=== PATIENT | male | born 1975 | race Caucasian/White ===

== ENCOUNTER 2018-02-24 11:04 | Emergency (ER) | payer OTHER ==
[2018-02-24 11:15] VITALS: BP 145/86
[2018-02-24] MEDS ORDERED: PROPARACAINE 0.5% OPHTH DROPS 15 ML EACHEYE STA (12:04)
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
== END 2018-02-24 12:14 | disposition home or self-care (01) ==
LOC: ED 11:04
DX: T26.90XA Corrosion of unspecified eye and adnexa, part unspecified, initial encounter (principal); I10 Essential (primary) hypertension
CPT/HCPCS: 99283; J3490